=== PATIENT | female | born 1950 | race American Indian/Alaskan Native ===

== ENCOUNTER 2019-01-09 10:02 | Outpatient (CLI) | payer MEDICARE ==
[2019-01-09] MEDS ORDERED: LIDOCAINE 1.5%/EPI 1:200,000 INFILTRATI ONE (10:49)
[2019-01-09] MEDS ORDERED: XYLOCAINE 2%/ EPI 1:200,000 INFILTRATI ONE (11:30)
== END 2019-01-09 10:03 | disposition home or self-care (01) ==
LOC: WOUND 10:02
PROVIDERS: ATTEND Surgery
DX: S31.829A Unspecified open wound of left buttock, initial encounter (principal); S31.812A Laceration with foreign body of right buttock, initial encounter; F32.9 Major depressive disorder, single episode, unspecified; I10 Essential (primary) hypertension; X58.XXXA Exposure to other specified factors, initial encounter; Y93.89 Activity, other specified; Y92.89 Other specified places as the place of occurrence of the external cause; Y99.8 Other external cause status
CPT/HCPCS: 10060; G0463; 99204

== ENCOUNTER 2019-01-25 10:39 | Outpatient (CLI) | payer MEDICARE ==
[2019-01-25] MEDS ORDERED: LIDOCAINE (4%) 40 MG/ML TOPICAL SOLN 50 ML BOTTLE TP ONE (11:47)
[2019-01-25] MEDS ORDERED: SILVER NITRATE APPLICATOR 1 EA TP ONE (11:47)
== END 2019-01-25 10:40 | disposition home or self-care (01) ==
LOC: WOUND 10:39
PROVIDERS: ATTEND Surgery
DX: S30.810D Abrasion of lower back and pelvis, subsequent encounter (principal); S31.812D Laceration with foreign body of right buttock, subsequent encounter; I10 Essential (primary) hypertension; J45.909 Unspecified asthma, uncomplicated; G20 Parkinson's disease; F32.9 Major depressive disorder, single episode, unspecified; W10.8XXD Fall (on) (from) other stairs and steps, subsequent encounter

== ENCOUNTER 2019-02-01 10:31 | Outpatient (CLI) | payer MEDICARE | END 2019-02-01 10:32 | disposition home or self-care (01) | LOC: WOUND 10:31 | PROVIDERS: ATTEND Surgery | DX: S31.812D Laceration with foreign body of right buttock, subsequent encounter (principal); I10 Essential (primary) hypertension; J45.909 Unspecified asthma, uncomplicated; G20 Parkinson's disease; F32.9 Major depressive disorder, single episode, unspecified; X58.XXXD Exposure to other specified factors, subsequent encounter | CPT/HCPCS: 99212; G0463 ==